=== PATIENT | female | born 1975 | race Caucasian/White ===

== ENCOUNTER 2016-06-27 07:28 | Emergency (ER) | payer SELFPAY ==
[2016-06-27 07:45] VITALS: TEMP 97.2
[2016-06-27] MEDS ORDERED: KETOROLAC 60 MG/2 ML VIAL IM STA (07:49)
--- NOTE | 2016-06-27 07:51 | ED ---
General Adult HPI - General Chief complaint: Fall Stated complaint: RT WRIST INJURY Time Seen by Provider: 06/27/16 07:45 Source: patient, RN notes reviewed Mode of arrival: ambulatory Limitations: no limitations - History of Present Illness Initial comments: This is a 40-year-old female who presents emergency Department complaining of right wrist pain. Patient states she was walking and slipped on the ice and fell and injured wrist. Patient states it hurts on the radial aspect of her wrist. Patient has noticed some swelling in that area as well. Patient has no tenderness of the fingers of the metacarpal region. Patient denies any elbow or shoulder pain. Patient also has some superficial abrasions on the knuckles of the left hand but has no areas of tenderness and has full range of motion of the fingers hand and wrist on the left per patient denies any other injury at this time. - Related Data Home Medications Medication Instructions Recorded Confirmed Ibuprofen [Motrin] 600 mg PO Q6HR PRN 06/27/16 06/27/16 Multivitamins, Thera [Multivitamin] 1 tab PO DAILY 06/27/16 06/27/16 Omeprazole 20 mg PO DAILY 06/27/16 06/27/16 Previous Rx's Medication Instructions Recorded Hydrocodone/Acetaminophen [[place] 1 each PO Q4HR PRN #20 tab 06/27/16 5-325] Allergies Allergy/AdvReac Type Severity Reaction Status Date / Time Sulfa (Sulfonamide Allergy Unknown Verified 06/27/16 07:53 Antibiotics) Review of Systems ROS Statement: Those systems with pertinent positive or pertinent negative responses have been documented in the HPI. ROS Other: All systems not noted in ROS Statement are negative. Past Medical History Additional Past Medical History / Comment(s): kidney infections History of Any Multi-Drug Resistant Organisms: None Reported Past Surgical History: Orthopedic Surgery Past Psychological History: No Psychological Hx Reported Smoking Status: Never smoker Past Alcohol Use History: Occasional Past Drug Use History: Marijuana General Exam - General Exam Comments Initial Comments: GENERAL Patient is well-developed and well-nourished. Patient is in mild distress. EYES Patient's pupils are equal and round. Extraocular motion is intact SKIN Unremarkable NEURO The patient is alert and oriented 3 PYSCH Patient has normal interpersonal interactions. MUSCULOSKELETAL There is swelling and tenderness over the scaphoid on the right wrist. This limits the patient's range of motion of the wrist Limitations: no limitations Course Vital Signs 06/27/16 07:42 Temperature 97.2 F L Pulse Rate 65 Respiratory 20 Rate Blood Pressure 141/76 O2 Sat by Pulse 99 Oximetry Procedures - Orthopedic Splinting/Casting Injury #1 Side: right Upper Extremity Injury Location: wrist Upper Extremity Immobilizer: volar splint Medical Decision Making - Medical Decision Making X-ray shows a comminuted nondisplaced fracture the distal radius. I place the patient in his splint. The patient for ago and since the patient home on [place] was and Motrin. Disposition Clinical Impression: Wrist fracture Disposition: HOME SELF-CARE Condition: Good Instructions: Wrist Fracture in Adults (ED) Prescriptions: Hydrocodone/Acetaminophen [[place] 5-325] 1 each PO Q4HR PRN #20 tab PRN Reason: Pain Referrals: Horacio Woodall MD [STAFF PHYSICIAN] - 1-2 days Time of Disposition: 08:36
--- NOTE | 2016-06-27 08:27 | XR ---
EXAMINATION TYPE: XR hand complete RT DATE OF EXAM: 06/27/2016 8:16 AM COMPARISON: NONE HISTORY: Pain slipping on ice TECHNIQUE: 3 views right hand FINDINGS: The hand appears intact. There is a comminuted fracture at the distal metaphyseal radius with intra-articular extension. Addit ional fractures are not identified. IMPRESSION: 1. Comminuted nondisplaced fracture distal metaphyseal radius with extension to the articular surface . 2. The hand appears intact.
[2016-06-27 08:49] VITALS: BP 173/80; PULSE 66; RESP 14
--- NOTE | 2016-06-28 11:08 | CDI ---
Please specify the SIZE OF SPLINT as LONG or SHORT for the splint for the patient. Any questions, please let me know. Thank you, Josy Toney, VILMA 06/28/16 BRINA
== END 2016-06-27 08:50 | disposition home or self-care (01) ==
LOC: EC 07:28
DX: S52.591A Other fractures of lower end of right radius, initial encounter for closed fracture (principal); Z88.2 Allergy status to sulfonamides; Z88.8 Allergy status to other drugs, medicaments and biological substances; Z79.899 Other long term (current) drug therapy; W00.0XXA Fall on same level due to ice and snow, initial encounter; Y93.01 Activity, walking, marching and hiking
CPT/HCPCS: 99284; 96372; 29125; 73130; J1885

== ENCOUNTER → 2018-10-31 | Outpatient (CLI) | payer BC ==
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
== END | disposition home or self-care (01) ==
LOC: RADUSWWP 06:59
PROVIDERS: ATTEND Family Medicine
DX: R10.9 Unspecified abdominal pain (principal); Z88.2 Allergy status to sulfonamides
CPT/HCPCS: 76770

== ENCOUNTER → 2019-12-08 | Outpatient (CLI) | payer OTHER ==
--- NOTE | 2019-12-08 13:37 | XR ---
EXAMINATION TYPE: XR shoulder complete LT DATE OF EXAM: 12/08/2019 CLINICAL HISTORY: pain COMPARISON: NONE TECHNIQUE: Three views of the left shoulder are obtained. FINDINGS: There is no acute fracture/dislocation evident. The acromioclavicular and glenohumeral aurora int spaces appear within normal limits. The visualized ribs are intact and unremarkable. IMPRESSION: 1. There is no acute fracture or dislocation. ICD 10 NO FRACTURE, INITIAL EVALUATION
--- NOTE | 2019-12-08 13:37 | XR ---
EXAMINATION TYPE: XR wrist complete RT DATE OF EXAM: 12/08/2019 CLINICAL HISTORY: pain TECHNIQUE: Frontal, lateral and oblique images of the right wrist are obtained. COMPARISON: None. FINDINGS: There is no acute fracture/dislocation evident. The joint spaces appear within normal limits. The o verlying soft tissue appears unremarkable. IMPRESSION: There is no acute fracture or dislocation seen. ICD 10 NO FRACTURE, INITIAL EVALUATION
--- NOTE | 2019-12-08 13:40 | XR ---
EXAMINATION TYPE: XR elbow complete bilateral DATE OF EXAM: 12/08/2019 CLINICAL HISTORY: pain TECHNIQUE: Frontal, lateral and oblique images of the right elbow are obtained. COMPARISON: None. FINDINGS: There is a radial head fracture noted with pathologic anterior and posterior fat pad identi fied. No additional fractures seen within the [id number]. IMPRESSION: Fracture right radial head. EXAMINATION TYPE: XR elbow complete bilateral DATE OF EXAM: 12/08/2019 CLINICAL HISTORY: pain TECHNIQUE: Frontal, lateral and oblique images of the left elbow are obtained. COMPARISON: None. FINDINGS: While I do not see evidence for displaced fracture there are pathologic anterior and title specialist ior fat pads suggesting occult fracture. IMPRESSION: No displaced fracture identified however pathologic anterior and posterior fat pad identified. Correl ate for occult fracture.
--- NOTE | 2019-12-08 14:09 | XR ---
EXAMINATION TYPE: XR chest 2V DATE OF EXAM: 12/08/2019 COMPARISON: NONE HISTORY: Chest pain TECHNIQUE: Frontal and lateral views of the chest are obtained. FINDINGS: There is no focal air space opacity. No evidence for pneumothorax. No pleural effusion. The cardiac silhouette size is within normal limits. The osseous structures are grossly intact. IMPRESSION: 1. No acute cardiopulmonary process.
== END | disposition home or self-care (01) ==
LOC: RADXRMAIN 13:01
PROVIDERS: ATTEND Emergency Medicine
DX: S43.402A Unspecified sprain of left shoulder joint, initial encounter (principal); S52.121A Displaced fracture of head of right radius, initial encounter for closed fracture; S42.402A Unspecified fracture of lower end of left humerus, initial encounter for closed fracture; S20.211A Contusion of right front wall of thorax, initial encounter; S60.211S Contusion of right wrist, sequela
CPT/HCPCS: 71046

== ENCOUNTER → 2020-05-18 | Outpatient (CLI) | payer BC | END | disposition home or self-care (01) | LOC: LABWHC1 12:12 | PROVIDERS: ATTEND Emergency Medicine | DX: Z20.828 Contact with and (suspected) exposure to other viral communicable diseases (principal) | CPT/HCPCS: U0003; C9803 ==

== ENCOUNTER → 2020-09-16 | Outpatient (CLI) | payer BC ==
--- NOTE | 2020-09-16 16:19 | CT ---
EXAMINATION TYPE: CT abdomen pelvis w con DATE OF EXAM: 09/16/2020 COMPARISON: NONE HISTORY: 44-year-old female M54.6 Pain in thoracic spine, R07.81 Pleurodynia. Left sided flank pain w ith loose stool for 2+ years TECHNIQUE: Contiguous axial scanning of the abdomen and pelvis following administration of 100 ml Iso yenny 300 IV contrast. Delayed images through the kidneys and coronal/sagittal reconstructions perform ed. CT DLP: 2753.5 mGycm Automated exposure control for dose reduction was used. FINDINGS: Heart normal size without pericardial effusion. Lung bases clear without pleural effusion. Liver enlarged at 21.8 cm with slightly low attenuation. No biliary ductal dilatation. Portal venous system is patent. Gallbladder, adrenal glands, spleen, and pancreas appear within normal limits. There is a 9 mm fat density cortical lesion medial upper pole right kidney probably small benign AML. Left kidney shows no gross abnormal body. Symmetric uptake and excretion of contrast from both kidne ys. No renal calculi are identified. No dilated small bowel, free fluid, free air. Prominent left mid abdominal mesenteric lymph nodes vidya suring up to 7 mm with mild dennis mesentery, for example, refer to axial image 39 and coronal image 4 4 and 45. Normal appendix. Oral contrast has reached the mid sigmoid colon. Mild scattered stool. No pericoloni c inflammatory change. Bladder nondistended. Uterus anteverted. Pelvic phleboliths. There is a fat density lesion of the rig ht ovary measuring 4.5 cm compatible with an ovarian dermoid. There is a 3.0 cm cystic-appearing lesion exophytic from the left ovary, likely paraovarian cyst that can be confirmed with ultrasound. No abnormal fluid collection the pelvis or pelvic lymphadenopathy. Bones: Mild degenerative change of the hips. Some anterior endplate spondylosis lower thoracic spine. IMPRESSION: 1. PROMINENT LYMPH NODES IN THE LEFT MID ABDOMEN MEASURING UP TO 7 MM WITH ASSOCIATED DENNIS MESENTERY . FINDINGS CAN BE SEEN WITH MESENTERIC PANNICULITIS. SIX-MONTH FOLLOW-UP CT RECOMMENDED A PRECAUTI ONARY MEASURE EARLY LYMPHOMA CAN HAVE A SIMILAR APPEARANCE. 2. A 3.0 CM CYSTIC-APPEARING LESION EXOPHYTIC FROM THE LEFT OVARY, SUSPECTED PARAOVARIAN CYST THAT CA N BE CONFIRMED WITH A PELVIC ULTRASOUND. 3. A 4.5 CM RIGHT OVARIAN DERMOID. 4. 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 5 HEPATOMEGALY (21.8 CM) WITH SUSPECTED MILD HEPATIC STEATOSIS.
== END | disposition home or self-care (01) ==
LOC: RADCTMAIN 13:56
PROVIDERS: ATTEND Family Medicine
DX: N83.202 Unspecified ovarian cyst, left side (principal); R16.0 Hepatomegaly, not elsewhere classified
CPT/HCPCS: 74177; Q9967

== ENCOUNTER 2024-01-11 09:54 | Emergency (ER) | payer BC, OTHER ==
[2024-01-11 10:10] VITALS: BP 125/91; PULSE 80; RESP 16; TEMP 98
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
[2024-01-11] MEDS: KETOROLAC 15 MG/ML 1 ML VIAL IM STA (11:06)
== END 2024-01-11 11:18 | disposition home or self-care (01) ==
LOC: EC 09:54
DX: S49.92XA Unspecified injury of left shoulder and upper arm, initial encounter (principal); Z88.2 Allergy status to sulfonamides; V19.40XA Pedal cycle driver injured in collision with unspecified motor vehicles in traffic accident, initial encounter; Y92.410 Unspecified street and highway as the place of occurrence of the external cause
CPT/HCPCS: 99283; 96372; J1885